=== PATIENT | female | born 1985 | race Caucasian/White ===

== ENCOUNTER 2016-12-08 17:25 | Emergency (ER) | payer SELFPAY ==
[2016-12-08 17:39] VITALS: BP 124/75
--- NOTE | 2016-12-08 17:54 | UC ---
Abdominal Pain Female HPI - HPI Summary HPI Summary: 1 WEEK OF INCREASING FATIGUE. HAS HAD LOOSE WATERY STOOLS. NAUSEA AND CHILLS. NO FEVER. NO URI SX. NO MYALGIAS OR JOINT PAIN. NO ASSOCIATION WITH FOOD THAT SHE CAN TELL. IS CONCERNED ABOUT POSSIBLE THYROID DYSFUNCTION STATING IT RUNS IN HER FAMILY. PCP - DR. VARGAS. - History of Current Complaint Chief Complaint: UCGI Stated Complaint: LIGHT HEADNESS,TIRED,STOMACH ISSUES Time Seen by Provider: 12/08/16 17:34 Hx Obtained From: Patient Hx Last Menstrual Period: 11/26/16 Onset/Duration: Gradual Onset, Lasting Days, Still Present Timing: Constant Severity Initially: Moderate Severity Currently: Moderate Pain Intensity: 0 Pain Scale Used: 0-10 Numeric Aggravating Factor(s): Nothing Alleviating Factor(s): Nothing Associated Signs and Symptoms: Positive: Nausea, Diarrhea Allergies/Adverse Reactions: Allergies Allergy/AdvReac Type Severity Reaction Status Date / Time Amoxicillin Allergy Unknown Verified 12/08/16 17:39 Reaction Details Ibuprofen Allergy Flushing Verified 12/08/16 17:39 Latex Allergy Hives Verified 12/08/16 17:39 Home Medications: Home Medications NK [No Home Medications Reported] 12/08/16 [History Confirmed 12/08/16] PMH/Surg Hx/FS Hx/Imm Hx Psychological History Of: Reports: Anxiety - Surgical History Surgical History: Yes Surgery Procedure, Year, and Place: 2010 wisdom teeth - Family History Known Family History: Positive: Diabetes, Other - HYPOTHYROID - Social History Alcohol Use: Occasionally Alcohol Amount: 2-4 drinks every few weeks or once a month Substance Use Type: Marijuana Substance Use Comment - Amount & Last Used: frequently - once a week Smoking Status (MU): Current Some Day Smoker Type: Cigarettes Amount Used/How Often: 2-3 per day Review of Systems Constitutional: Fatigue Respiratory: Negative Cardiovascular: Negative Gastrointestinal: Diarrhea, Other - NAUSEA Genitourinary: Negative All Other Systems Reviewed And Are Negative: Yes Physical Exam Triage Information Reviewed: Yes Appearance: Well-Appearing, No Pain Distress, Well-Nourished Vital Signs: Initial Vital Signs Temp 98.1 F 12/08/16 17:35 Pulse 74 12/08/16 17:35 Resp 16 12/08/16 17:35 BP 124/75 12/08/16 17:35 Pulse Ox 99 12/08/16 17:35 Vital Signs Reviewed: Yes Eyes: Positive: Conjunctiva Clear ENT: Positive: Hearing grossly normal Neck: Positive: Supple, Nontender, No Lymphadenopathy Respiratory Exam: Normal Cardiovascular Exam: Normal Abdomen Description: Positive: Nontender, Soft. Negative: CVA Tenderness (R), CVA Tenderness (L), Distended, Guarding Musculoskeletal: Positive: No Edema Neurological: Positive: Alert Psychological: Positive: Age Appropriate Behavior Skin: Negative: rashes Abd Pain Female Course/Dx - Differential Dx/Diagnosis Provider Diagnoses: 1. FATIGUE. 2. DIARRHEA Discharge - Discharge Plan Condition: Stable Disposition: HOME Patient Education Materials: Acute Diarrhea (ED), Fatigue (ED) Referrals: Radha Vargas MD [Medical Doctor] - 1 Week Additional Instructions: WILL CHECK BLOOD WORK TODAY INCLUDING BLOOD COUNT, METABOLIC PANEL AND THYROID. WILL ALSO SEND YOU HOME WITH A STOOL KIT. PLEASE BRING IN A SPECIMEN FOR TESTING. STAY WELL HYDRATED, WELL RESTED AND FOLLOW-UP WITH YOUR PCP. GO TO THE ER WITHOUT FAIL IF YOUR SYMPTOMS WORSEN.
[2016-12-09 13:48] LABS: Hematocrit 42 % (35-47); Hemoglobin 13.8 g/dl (12.0-16.0); Mean Corpuscular HGB Conc 33 g/dl (31-36); Mean Corpuscular Hemoglobin 31 pg (27-31); Mean Corpuscular Volume 94 fL (80-97); Mean Platelet Volume 10 um3 (7.4-10.4); Red Blood Count 4.43 10^6/ul (4.0-5.4); Red Cell Distribution Width 13 % (10.5-15); White Blood Count 7.9 10^3/ul (3.5-10.8)
[2016-12-09 16:27] LABS: Albumin 4.9 g/dL (3.2-5.2); BUN/Creatinine Ratio 20.6 (8-20); Calcium 9.8 mg/dL (8.6-10.3); EGFR African American 143.7 (>60); EGFR Non-African American 111.7 (>60); Globulin 2.7 g/dL (2-4); Potassium 3.7 mmol/L (3.5-5.0); Total Bilirubin 0.4 mg/dL (0.2-1.0); Total Protein 7.6 g/dL (6.4-8.9)
== END 2016-12-08 18:28 | disposition home or self-care (01) ==
LOC: UCEAST 17:25
DX: R53.83 Other fatigue (principal); R19.7 Diarrhea, unspecified; F41.9 Anxiety disorder, unspecified; F12.90 Cannabis use, unspecified, uncomplicated; F17.210 Nicotine dependence, cigarettes, uncomplicated; Z88.3 Allergy status to other anti-infective agents; Z91.040 Latex allergy status
CPT/HCPCS: 36415; 80053; 84443; 85025; 99211; G0463

== ENCOUNTER 2017-10-31 09:40 | Emergency (ER) | payer OTHER ==
--- NOTE | 2017-10-31 11:47 | RAD ---
Indication: Pelvic pain. Real-time sonography of the pelvis was performed. Endovaginally the uterus measures 7.6 x 2.9 x 3.7 cm. Endometrial echo measures 4 mm. Right ovary measures 3.2 x 1.4 x 2.0 cm with a 12 mm follicle. Left ovary measures 1.5 x 1.3 x 1.6 cm. No adnexal masses are noted. IMPRESSION: No adnexal masses are noted.
[2017-10-31 12:08] VITALS: BP 121/75
--- NOTE | 2017-10-31 12:27 | UC ---
Complaint Female HPI - HPI Summary HPI Summary: 32 yo WF c/o pelvic pain and mild dysuria associated with f/c and recent sexual activity and new sex partner. Broke up with fiance and also very stressed and wonders if this could be new STD with a new partner. LAst PAP was 2 yrs ago which . Pt also c/o was neg. - History Of Current Complaint Chief Complaint: UCGeneralIllness Stated Complaint: PERSONAL Time Seen by Provider: 10/31/17 10:27 Hx Obtained From: Patient Hx Last Menstrual Period: 10/15-10/19 Onset/Duration: Sudden Onset Timing: Lasting Days Severity Initially: Moderate Severity Currently: Moderate Pain Intensity: 3 - Allergies/Home Medications Allergies/Adverse Reactions: Allergies Allergy/AdvReac Type Severity Reaction Status Date / Time amoxicillin Allergy Unknown Verified 10/31/17 09:58 Reaction Details ibuprofen Allergy Flushing Verified 10/31/17 09:58 latex Allergy Hives Verified 10/31/17 09:58 Home Medications: Home Medications L.acidoph,Paracasei, B.lactis [Probiotic] 1 cap PO DAILY 10/31/17 [History Confirmed 10/31/17] Mv-Min/Iron/Folic/Calcium/Vitk [Women's Multivitamin Tablet] 1 tab PO DAILY 12/13 [History Confirmed 10/31/17] [place]-3 Fatty Acids/Fish Oil [Fish Oil 1,000 mg Capsule] 1 cap PO DAILY [History Confirmed 10/31/17] PMH/Surg Hx/FS Hx/Imm Hx Previously Healthy: Yes - Surgical History Surgical History: Yes Surgery Procedure, Year, and Place: 2010 wisdom teeth - Family History Known Family History: Positive: Diabetes, Other - HYPOTHYROID - Social History Alcohol Use: Occasionally Alcohol Amount: 2-4 drinks every few weeks or once a month Substance Use Type: Marijuana Substance Use Comment - Amount & Last Used: frequently - once a week Smoking Status (MU): Current Some Day Smoker Type: Cigarettes Amount Used/How Often: 2-3 per day Review of Systems Constitutional: Fever, Chills Skin: Negative Eyes: Negative ENT: Negative Respiratory: Negative Cardiovascular: Negative Gastrointestinal: Negative Genitourinary: Dysuria, Abnormal Bleeding - menometorrhagia Motor: Negative Neurovascular: Negative Musculoskeletal: Negative Neurological: Negative Psychological: Negative All Other Systems Reviewed And Are Negative: Yes Physical Exam Triage Information Reviewed: Yes Appearance: Ill-Appearing Vital Signs: Initial Vital Signs Temp 37.2 C 10/31/17 09:50 Pulse 67 10/31/17 09:50 Resp 18 10/31/17 09:50 BP 107/65 10/31/17 09:50 Pulse Ox 100 10/31/17 09:50 Eye Exam: Normal ENT Exam: Normal Dental Exam: Normal Neck exam: Normal Neck: Positive: 1 Respiratory Exam: Normal Cardiovascular Exam: Normal Abdominal Exam: Normal Pelvic Exam: Positive: External Exam Normal, Speculum Exam Normal, Bimanual Exam Normal, No Cerv. Motion Tender, Active Bleeding - dark red blood in vaginal vault and around the cervix, Blood. Negative: Cervicitis, Discharge, Lesions, Mass, Tender w/ Cervical Motion, Tender Adnexa - neg for CMT, neg adnexal tenderness, Tender Uterus, Ulcers Musculoskeletal Exam: Normal Neurological Exam: Normal Psychological Exam: Normal Skin Exam: Normal Complaint Female Dx - Course Course Of Treatment: pelvic exam - dark red blood around the cervix, no florid cervical lesions seen,endocervical cx sent for GC/Chlamydia/Trich/Gardnerella, REFUSED BLOOD testing for potential STI's. UA pH 6.5, positive for blood but pt has bleeding between periods, which can mask an evolving lower UTI. Transvag US- Neg for ovarian cyst, masses or endometriosis. In light of recent sexual activity and mild dysuria, will tx for acute UTI with Macrobid - Differential Dx/Diagnosis Differential Diagnosis/HQI/PQRI: Cervicitis, Endometriosis, Ovarian Cyst, Tubo- ovarian Abscess, Urinary Tract Infection Provider Diagnoses: UTI. pelvic pain. menometorrhagia. fever Discharge - Sign-Out/Discharge Documenting (check all that apply): Discharge - Discharge Plan Condition: Stable Disposition: HOME Prescriptions: Nitrofurantoin Macrocrystal [Nitrofurantoin] 100 mg PO BID 5 Days #10 capsule Patient Education Materials: Urinary Tract Infection in Women (ED) Referrals: Radha Vargas MD [Primary Care Provider] - Additional Instructions: Please follow up with [facility] - Billing Disposition and Condition Condition: STABLE Disposition: HOME
--- NOTE | 2017-11-01 11:47 | UC ---
- Progress Note Progress Note: please call pt and inform her of test positive for gardenerella/bv. metrogel suppositories sent. encourage probiotics and voiding after everytime she has sex. thank you Discharge - Sign-Out/Discharge Documenting (check all that apply): Post-Discharge Follow Up - Discharge Plan Condition: Stable Disposition: HOME Prescriptions: metroNIDAZOLE VAGINAL 0.75%* 1 applic VAGINAL BID #10 tube Nitrofurantoin Macrocrystal [Nitrofurantoin] 100 mg PO BID 5 Days #10 capsule Patient Education Materials: Urinary Tract Infection in Women (ED) Referrals: Radha Vargas MD [Primary Care Provider] - Additional Instructions: Please follow up with [facility] - Billing Disposition and Condition Condition: STABLE Disposition: HOME
== END 2017-10-31 12:28 | disposition home or self-care (01) ==
LOC: UCEAST 09:40
DX: N39.0 Urinary tract infection, site not specified (principal); N92.1 Excessive and frequent menstruation with irregular cycle; R10.2 Pelvic and perineal pain; N76.0 Acute vaginitis; B96.89 Other specified bacterial agents as the cause of diseases classified elsewhere; R50.9 Fever, unspecified; Z88.6 Allergy status to analgesic agent; Z88.1 Allergy status to other antibiotic agents; Z91.040 Latex allergy status; Z72.0 Tobacco use
CPT/HCPCS: 76830; 81003; 87480; 87491; 87510; 87591; 87661; 99212; G0463